=== PATIENT | female | born 1970 | race African-American/Black ===

== ENCOUNTER 2020-04-07 00:48 | Observation (INO) ==
[2020-04-07] MEDS ORDERED: MORPHINE 4 MG/1 ML VIAL IV STA (01:42)
[2020-04-07] MEDS ORDERED: ALBUTEROL/IPRATROPIUM 3 ML NEB RESP TX STA (01:42)
[2020-04-07] MEDS ORDERED: ONDANSETRON 4 MG/2 ML VIAL IV STA (01:42)
[2020-04-07] MEDS ORDERED: DEXAMETHASONE 4 MG/1 ML VIAL IV STA (01:42)
[2020-04-07 02:11] LABS: Basophils % 0.1 % (0.0-0.8); Eosinophils % 0.1 % (0.00-10.9); Hematocrit 36.3 VOL% (35.7-47.0); Hemoglobin 11.1 GM/DL (12.0-16.0); Immature Granulocytes % 0.4 %; Immature Granulocytes Absolute 0.05 #; Lymphocytes % 8.8 % (21.3-54.2); Mean Corpuscular HGB Conc 30.6 GM/DL (32-36); Mean Corpuscular Volume 68.9 FL (87-102); Neutrophils % 85.6 % (38.7-73.9); Platelet Count 267 T/CUMM (130-400); Red Blood Count 5.27 MC/CUMM (3.8-5.5); Red Cell Distribution Width 18.9 % (9.3-17.3); White Blood Count 11.2 T/CUMM (4-12)
[2020-04-07 02:45] LABS: Alanine Aminotransferase 146 U/L (13-56); Albumin 3.3 G/DL (3.4-5.0); Alkaline Phosphatase 118 U/L (45-117); Aspartate Amino Transferase 72 U/L (0-37); Bilirubin,Total < 0.39 MG/DL (0.2-1.0); Blood Urea Nitrogen 12 MG/DL (7-18); Calcium 8.3 MG/DL (8.5-10.1); Estimated Glom Filtration Rate 116 ML/MIN; Glucose 146 MG/DL (74-106); Total Protein 8.4 G/DL (6.4-8.3)
[2020-04-07 03:02] LABS: PT Patient Result 10.6 SECS (9.8-11.9)
[2020-04-07 03:17] LABS: Ferritin 20.5 ng/ml (8-252)
[2020-04-07] MEDS ORDERED: MORPHINE 4 MG/1 ML VIAL IV PRN (05:14)
[2020-04-07] MEDS ORDERED: NICOTINE 21 MG/24 HR PATCH TRANSDERM PRN (05:14)
[2020-04-07] MEDS ORDERED: ACETAMINOPHEN 325 MG TABLET PO PRN (05:14)
[2020-04-07] MEDS ORDERED: diphenhydrAMINE CAP 25 MG CAPSULE PO PRN (05:14)
[2020-04-07] MEDS ORDERED: GLUCAGON 1 MG VIAL IM PRN (05:14)
[2020-04-07] MEDS ORDERED: ONDANSETRON 4 MG/2 ML VIAL IV PRN (05:14)
[2020-04-07] MEDS ORDERED: hydrALAZINE 20 MG/1 ML VIAL IV PRN (05:14)
[2020-04-07] MEDS ORDERED: DEXTROSE 50% 25 GM/50 ML VIAL IV PRN (05:14)
[2020-04-07] MEDS ORDERED: guaiFENesin/DM ER 600-30 MG TABLET PO PRN (05:14)
[2020-04-07 05:58] LABS: Bacteria,Urine Occasional /HPF (Few); Bilirubin,Urine Negative (Negative); Blood, Urine Negative (Negative); Glucose,Urine (UA) Negative (Negative); Ketones,Urine Negative (Negative); Mucus,Urine Occasional /LPF (Occasional); Nitrite,Urine Negative (Negative); Protein,Urine Negative; RBC,Urine 1 /HPF (0-4); Squamous Epithelial Cell,Urine Occasional /HPF (0-10); Urine Appearance CLEAR (Clear); Urine Color Yellow (Yellow); Urine Specific Gravity 1.017 (1.001-1.035); Urine Urobilinogen < 2.0 EU/DL (0.2-1.0); WBC,Urine <1 /HPF (0-6)
[2020-04-07] MEDS: cefTRIAXone 1,000 MG in SYRINGE 1 EACH IV SCH (06:20)
[2020-04-07] MEDS: SODIUM CHLORIDE 0.9% 1,000 ML IV SCH ×2 (06:32→20:00)
[2020-04-07 09:10] LABS: Hepatitis B Core IgM Quant < 0.05 Index; Hepatitis B Surface Ag Quant < 0.10 Index; Hepatitis B Surface Ag Result Negative (Negative); Hepatitis C Virus Ab Quant 0.02 Index; Hepatitis C Virus Ab Result Negative (Negative)
[2020-04-07] MEDS: DEXAMETHASONE 4 MG/1 ML VIAL IV SCH (10:47)
[2020-04-07] MEDS: ENOXAPARIN 40 MG/0.4 ML SYRINGE SUBCUT SCH (10:48)
[2020-04-07] MEDS: AZITHROMYCIN 250 MG TABLET PO SCH (10:48)
[2020-04-07] MEDS ORDERED: DEXAMETHASONE 4 MG/1 ML VIAL IV SCH (14:00)
[2020-04-08 06:16] LABS: Basophils % 0.2 % (0.0-0.8); Hematocrit 35.6 VOL% (35.7-47.0); Hemoglobin 10.9 GM/DL (12.0-16.0); Immature Granulocytes % 0.6 %; Immature Granulocytes Absolute 0.08 #; Lymphocytes # 1.5 10*3/uL (1.4-4.0); Lymphocytes % 12.1 % (21.3-54.2); Mean Corpuscular HGB Conc 30.6 GM/DL (32-36); Mean Corpuscular Volume 69.1 FL (87-102); Monocytes % 5.5 % (1.7-12.7); Neutrophils % 81.6 % (38.7-73.9); Platelet Count 256 T/CUMM (130-400); Red Blood Count 5.15 MC/CUMM (3.8-5.5); Red Cell Distribution Width 18.8 % (9.3-17.3); White Blood Count 12.3 T/CUMM (4-12)
[2020-04-08] MEDS: cefTRIAXone 1,000 MG in SYRINGE 1 EACH IV SCH (06:30)
[2020-04-08 06:43] LABS: Ferritin 24.6 ng/ml (8-252)
[2020-04-08 07:22] LABS: Calcium 8.5 MG/DL (8.5-10.1)
[2020-04-08] MEDS: SODIUM CHLORIDE 0.9% 1,000 ML IV SCH ×2 (08:35→21:23)
[2020-04-08] MEDS: ENOXAPARIN 40 MG/0.4 ML SYRINGE SUBCUT SCH (08:35)
[2020-04-08] MEDS: AZITHROMYCIN 250 MG TABLET PO SCH (08:35)
[2020-04-08] MEDS: DEXAMETHASONE 4 MG/1 ML VIAL IV SCH (08:35)
[2020-04-08 08:37] LABS: Osmolality,Calculated 281.4 MOS/KG (273-304)
[2020-04-08 09:22] LABS: Alanine Aminotransferase 99 U/L (13-56); Albumin 2.9 G/DL (3.4-5.0); Alkaline Phosphatase 104 U/L (45-117); Aspartate Amino Transferase 35 U/L (0-37); Bilirubin,Indirect 0.3 MG/DL (0.0-1.0); Bilirubin,Total < 0.39 MG/DL (0.2-1.0); Total Protein 7.7 G/DL (6.4-8.3)
[2020-04-08] MEDS: ASCORBIC ACID 500 MG TABLET PO SCH ×2 (10:34→21:25)
[2020-04-08] MEDS: ZINC SULFATE 220 MG CAPSULE PO SCH (10:34)
[2020-04-08] MEDS: CHOLECALCIFEROL 1,000 UNIT TABLET PO SCH (10:34)
[2020-04-08] MEDS ORDERED: SODIUM CHLORIDE 0.9% 1,000 ML IV PRN (11:13)
[2020-04-08 13:03] LABS: ABG Base Excess -1.4 MMOL/L (-2.5-2.5); ABG HCO3 23.2 MMOL/L (20-26); ABG Oxygen Saturation 92.5 % (95-100); ABG PCO2 40.4 MM HG (35-48); ABG PH 7.375 (7.35-7.45); ABG PO2 70.8 MM HG (80-95); ABG TCO2 21.3 MMOL/L (23-27)
[2020-04-08] MEDS: ALBUTEROL INHALER 18 GM INH SCH ×3 (14:00→23:35)
[2020-04-08] MEDS ORDERED: FLUCONAZOLE 150 MG TABLET PO ONE (21:00)
[2020-04-08] MEDS: DOXYCYCLINE HYCLATE 100 MG CAPSULE PO SCH (21:25)
[2020-04-09] MEDS ORDERED: BISACODYL 5 MG TABLET PO ONE (04:14)
[2020-04-09] MEDS: cefTRIAXone 1,000 MG in SYRINGE 1 EACH IV SCH (05:17)
[2020-04-09 05:32] LABS: Basophils % 0.1 % (0.0-0.8); Eosinophils % 0.1 % (0.00-10.9); Hematocrit 32.8 VOL% (35.7-47.0); Hemoglobin 10.1 GM/DL (12.0-16.0); Immature Granulocytes % 0.5 %; Immature Granulocytes Absolute 0.05 #; Lymphocytes # 1.9 10*3/uL (1.4-4.0); Mean Corpuscular HGB Conc 30.8 GM/DL (32-36); Mean Corpuscular Volume 69.2 FL (87-102); Monocytes % 5.8 % (1.7-12.7); Neutrophils % 76.5 % (38.7-73.9); Platelet Count 304 T/CUMM (130-400); Red Blood Count 4.74 MC/CUMM (3.8-5.5); Red Cell Distribution Width 18.6 % (9.3-17.3); White Blood Count 10.9 T/CUMM (4-12)
[2020-04-09 05:58] LABS: Ferritin 27.6 ng/ml (8-252)
[2020-04-09 07:10] LABS: Calcium 8.4 MG/DL (8.5-10.1); Osmolality,Calculated 276.5 MOS/KG (273-304)
[2020-04-09 07:44] LABS: Alanine Aminotransferase 93 U/L (13-56); Albumin 2.8 G/DL (3.4-5.0); Alkaline Phosphatase 106 U/L (45-117); Aspartate Amino Transferase 46 U/L (0-37); Bilirubin,Direct < 0.100 MG/DL (0.0-0.20); Bilirubin,Indirect 0.3 MG/DL (0.0-1.0); Bilirubin,Total < 0.39 MG/DL (0.2-1.0); Total Protein 7.4 G/DL (6.4-8.3)
[2020-04-09] MEDS: ALBUTEROL INHALER 18 GM INH SCH ×3 (08:59→20:38)
[2020-04-09] MEDS: SODIUM CHLORIDE 0.9% 1,000 ML IV SCH (09:00)
[2020-04-09] MEDS: DEXAMETHASONE 4 MG/1 ML VIAL IV SCH (09:00)
[2020-04-09] MEDS: ZINC SULFATE 220 MG CAPSULE PO SCH (09:01)
[2020-04-09] MEDS: ENOXAPARIN 40 MG/0.4 ML SYRINGE SUBCUT SCH (09:01)
[2020-04-09] MEDS: ASCORBIC ACID 500 MG TABLET PO SCH ×2 (09:01→20:37)
[2020-04-09] MEDS: CHOLECALCIFEROL 1,000 UNIT TABLET PO SCH (09:01)
[2020-04-09] MEDS: DOXYCYCLINE HYCLATE 100 MG CAPSULE PO SCH ×2 (09:01→20:37)
[2020-04-09] MEDS ORDERED: FUROSEMIDE 40 MG/4 ML VIAL IV ONE (13:13)
[2020-04-10] MEDS: ALBUTEROL INHALER 18 GM INH SCH ×4 (00:53→20:25)
[2020-04-10] MEDS: cefTRIAXone 1,000 MG in SYRINGE 1 EACH IV SCH (05:31)
[2020-04-10 05:43] LABS: Eosinophils % 0.1 % (0.00-10.9); Hematocrit 33.6 VOL% (35.7-47.0); Hemoglobin 10.3 GM/DL (12.0-16.0); Immature Granulocytes % 0.8 %; Immature Granulocytes Absolute 0.06 #; Lymphocytes # 1.9 10*3/uL (1.4-4.0); Lymphocytes % 23.7 % (21.3-54.2); Mean Corpuscular HGB Conc 30.7 GM/DL (32-36); Monocytes % 8.9 % (1.7-12.7); Neutrophils % 66.5 % (38.7-73.9); Platelet Count 275 T/CUMM (130-400); Red Blood Count 4.87 MC/CUMM (3.8-5.5); Red Cell Distribution Width 18.6 % (9.3-17.3)
[2020-04-10 06:00] LABS: Calcium 8.8 MG/DL (8.5-10.1); Osmolality,Calculated 281.4 MOS/KG (273-304)
[2020-04-10 06:05] LABS: Hypochromasia 1+; Microcytosis 1+; Ovalocytes Slight; Platelet Estimate Adequate
[2020-04-10 06:30] LABS: Albumin 2.7 G/DL (3.4-5.0); Bilirubin,Total 0.5 MG/DL (0.2-1.0); Calcium 8.9 MG/DL (8.5-10.1); Osmolality,Calculated 279.5 MOS/KG (273-304); Total Protein 7.5 G/DL (6.4-8.3)
[2020-04-10] MEDS: DOXYCYCLINE HYCLATE 100 MG CAPSULE PO SCH ×2 (08:50→20:24)
[2020-04-10] MEDS: DEXAMETHASONE 4 MG/1 ML VIAL IV SCH (08:50)
[2020-04-10] MEDS: ENOXAPARIN 40 MG/0.4 ML SYRINGE SUBCUT SCH (08:50)
[2020-04-10] MEDS: ASCORBIC ACID 500 MG TABLET PO SCH ×2 (08:50→20:24)
[2020-04-10] MEDS: ZINC SULFATE 220 MG CAPSULE PO SCH (08:52)
[2020-04-10] MEDS: CHOLECALCIFEROL 1,000 UNIT TABLET PO SCH (08:52)
[2020-04-10 09:16] LABS: ABG Base Excess 4.6 MMOL/L (-2.5-2.5); ABG HCO3 28.5 MMOL/L (20-26); ABG Oxygen Saturation 92.7 % (95-100); ABG PCO2 42.8 MM HG (35-48); ABG PH 7.442 (7.35-7.45); ABG PO2 66.1 MM HG (80-95); ABG TCO2 26.3 MMOL/L (23-27)
[2020-04-10 21:12] LABS: ABG Base Excess 3.6 MMOL/L (-2.5-2.5); ABG HCO3 27.7 MMOL/L (20-26); ABG Oxygen Saturation 97.6 % (95-100); ABG PCO2 46.1 MM HG (35-48); ABG PH 7.406 (7.35-7.45); ABG TCO2 26.1 MMOL/L (23-27)
[2020-04-11] MEDS: ALBUTEROL INHALER 18 GM INH SCH ×4 (01:28→20:29)
[2020-04-11] MEDS: cefTRIAXone 1,000 MG in SYRINGE 1 EACH IV SCH (05:25)
[2020-04-11 06:34] LABS: Basophils % 0.2 % (0.0-0.8); Eosinophils % 0.4 % (0.00-10.9); Hematocrit 33.9 VOL% (35.7-47.0); Hemoglobin 10.4 GM/DL (12.0-16.0); Immature Granulocytes % 0.9 %; Lymphocytes # 2.5 10*3/uL (1.4-4.0); Lymphocytes % 23.4 % (21.3-54.2); Mean Corpuscular HGB Conc 30.7 GM/DL (32-36); Mean Corpuscular Volume 69.3 FL (87-102); Monocytes % 7.5 % (1.7-12.7); Neutrophils % 67.6 % (38.7-73.9); Platelet Count 309 T/CUMM (130-400); Red Blood Count 4.89 MC/CUMM (3.8-5.5); Red Cell Distribution Width 18.6 % (9.3-17.3); White Blood Count 10.6 T/CUMM (4-12)
[2020-04-11 06:54] LABS: Calcium 8.8 MG/DL (8.5-10.1); Osmolality,Calculated 278.5 MOS/KG (273-304)
[2020-04-11 06:55] LABS: Ferritin 31.5 ng/ml (8-252)
[2020-04-11 07:12] LABS: Hypochromasia 1+; Microcytosis 1+
[2020-04-11 07:13] LABS: Ovalocytes Slight; Platelet Estimate Adequate
[2020-04-11] MEDS: ASCORBIC ACID 500 MG TABLET PO SCH ×2 (08:37→20:28)
[2020-04-11] MEDS: ZINC SULFATE 220 MG CAPSULE PO SCH (08:37)
[2020-04-11] MEDS: DEXAMETHASONE 4 MG/1 ML VIAL IV SCH (08:37)
[2020-04-11] MEDS: ENOXAPARIN 40 MG/0.4 ML SYRINGE SUBCUT SCH (08:37)
[2020-04-11] MEDS: DOXYCYCLINE HYCLATE 100 MG CAPSULE PO SCH ×2 (08:38→20:28)
[2020-04-11] MEDS: CHOLECALCIFEROL 1,000 UNIT TABLET PO SCH (08:38)
[2020-04-11] MEDS ORDERED: FLUCONAZOLE 150 MG TABLET PO ONE (09:00)
[2020-04-12] MEDS: ALBUTEROL INHALER 18 GM INH SCH ×3 (01:27→12:00)
[2020-04-12] MEDS ORDERED: BISACODYL 5 MG TABLET PO ONE (05:00)
[2020-04-12] MEDS: cefTRIAXone 1,000 MG in SYRINGE 1 EACH IV SCH (05:28)
[2020-04-12 05:57] LABS: Basophils % 0.1 % (0.0-0.8); Eosinophils # 0.1 10*3/uL (0.0-0.87); Eosinophils % 0.4 % (0.00-10.9); Hematocrit 34.9 VOL% (35.7-47.0); Hemoglobin 10.4 GM/DL (12.0-16.0); Immature Granulocytes % 1.3 %; Immature Granulocytes Absolute 0.16 #; Lymphocytes # 2.7 10*3/uL (1.4-4.0); Lymphocytes % 22.3 % (21.3-54.2); Mean Corpuscular HGB Conc 29.8 GM/DL (32-36); Mean Corpuscular Volume 69.9 FL (87-102); Monocytes % 7.7 % (1.7-12.7); Neutrophils % 68.2 % (38.7-73.9); Platelet Count 308 T/CUMM (130-400); Red Blood Count 4.99 MC/CUMM (3.8-5.5); Red Cell Distribution Width 18.9 % (9.3-17.3); White Blood Count 12.1 T/CUMM (4-12)
[2020-04-12 06:08] LABS: Calcium 8.7 MG/DL (8.5-10.1); Osmolality,Calculated 283.3 MOS/KG (273-304)
[2020-04-12 06:21] LABS: Hypochromasia 1+; Microcytosis 1+; Ovalocytes Slight; Platelet Estimate Adequate; Target Cells Few
[2020-04-12] MEDS: ASCORBIC ACID 500 MG TABLET PO SCH (10:13)
[2020-04-12] MEDS: DEXAMETHASONE 4 MG/1 ML VIAL IV SCH (10:13)
[2020-04-12] MEDS: ZINC SULFATE 220 MG CAPSULE PO SCH (10:13)
[2020-04-12] MEDS: CHOLECALCIFEROL 1,000 UNIT TABLET PO SCH (10:13)
[2020-04-12] MEDS: ENOXAPARIN 40 MG/0.4 ML SYRINGE SUBCUT SCH (10:13)
[2020-04-12] MEDS: DOXYCYCLINE HYCLATE 100 MG CAPSULE PO SCH (10:13)
[2020-04-12] MEDS ORDERED: POLYETHYLENE GLYCOL POWDER 17 GM PACK PO ONE (10:52)
[2020-04-12 11:57] VITALS: BP 133/75
== END 2020-04-12 14:34 | disposition home or self-care (01) ==
LOC: N.EDINP 00:48 → N.ED 00:48 → SUATTDRO 05:14 → SUPCPDRO 05:14 → N.2E 05:42
PROVIDERS: ADMIT Internal Medicine Geriatric Medicine; ATTEND Internal Medicine